=== PATIENT | male | born 1950 | race Caucasian/White ===

== ENCOUNTER 2021-03-28 09:02 | Outpatient (CLI) | payer MEDICARE ==
[2021-03-28 11:14] LABS: Hemoglobin 12.7 g/dL (13.5-17.5); Mean Corpuscular HGB CONC 32.5 g/dL (32.0-36.0); Mean Corpuscular Hemoglobin 31.1 pg (27.0-33.0); Mean Corpuscular Volume 95.8 fl (81.2-95.1); Mean Platelet Volume 9.4 fl (7.4-10.4); Platelet Count 267 10x3/uL (150-450); RBC Distribution Width 13.2 % (11.5-14.5); Red Blood Cell (RBC) Count 4.08 10x6/uL (4.32-5.72); White Blood Cell (WBC) Count 6.7 10x3/uL (3.5-10.5)
[2021-03-28 11:35] LABS: Anion Gap 13 mmol/L (10-20); BUN (Urea Nitrogen) 17 mg/dL (8.4-25.7); Calc. Creatinine Clearance 0 mL/min (70-130); Calcium 8.7 mg/dL (7.8-10.44); Carbon Dioxide 25 mmol/L (23-31); Chloride 103 mmol/L (98-107); Glucose 102 mg/dL (80-115); Potassium 4.5 mmol/L (3.5-5.1); Sodium 136 mmol/L (136-145)
[2021-03-28 19:23] LABS: SARS-CoV-2 PCR by NAA DETECTED (NotDetected)
== END 2021-03-28 09:03 | disposition home or self-care (01) ==
LOC: CSHLAB 09:02
PROVIDERS: ATTEND Surgery
DX: U07.1 COVID-19 (principal); K40.90 Unilateral inguinal hernia, without obstruction or gangrene, not specified as recurrent
CPT/HCPCS: 80048; 85027; 93005; 93010; U0003; U0005

== ENCOUNTER 2021-04-28 06:41 | Day surgery (SDC) | payer MEDICARE ==
[2021-03-23 13:49] VITALS: BMI 24.6
[~2021-04-28 06:41] MED LIST: EPINEPHrine 1 MG/ML AMP ONE
[2021-04-28] MEDS ORDERED: Bupivacaine PF 0.5% 30 ML VIAL ONE (06:42)
[2021-04-28] MEDS ORDERED: Lidocaine 1% MPF 2 ML VIAL ONE (07:00)
[2021-04-28] MEDS ORDERED: Rocuronium Bromide 10 MG/ML (10ML VIAL) ONE (07:56)
[2021-04-28] MEDS ORDERED: Dexamethasone 4 mg/ml Vial ONE (07:56)
[2021-04-28] MEDS ORDERED: Ondansetron PF 4 MG/2 ML Vial ONE (07:56)
[2021-04-28] MEDS ORDERED: PROPOFOL 20 ML ONE (07:56)
[2021-04-28] MEDS ORDERED: Fentanyl 100 MCG/2 ML VIAL ONE ×2 (07:56→09:24)
[2021-04-28] MEDS ORDERED: Lidocaine 2% PF 5 ML VIAL ONE (07:57)
[2021-04-28] MEDS ORDERED: ceFAZolin 2 GM/Dextrose 50 ML IVPB ONE (08:22)
[2021-04-28] MEDS ORDERED: traMADol HCl 50 MG TAB PO PRN (08:28)
[2021-04-28] MEDS ORDERED: PHENYLEPHRINE-NS 100 MCG/ML 10 ML SYRINGE ONE (08:45)
[2021-04-28] MEDS ORDERED: ePHEDrine Sulfate 50 MG/10 ML VIAL ONE (08:48)
[2021-04-28] MEDS ORDERED: Glycopyrrolate 0.2 MG/ML 5 ML SYRINGE ONE (08:48)
[2021-04-28] MEDS ORDERED: Esmolol 100 MG/10 ML VIAL ONE (09:24)
== END 2021-04-28 10:25 | disposition home or self-care (01) ==
LOC: CSHSDC 06:41
PROVIDERS: ATTEND Surgery
PROC: 0YU64JZ Supplement Left Inguinal Region with Synthetic Substitute, Percutaneous Endoscopic Approach (ICD-10-PCS; principal; 2021-04-28)
DX: K40.90 Unilateral inguinal hernia, without obstruction or gangrene, not specified as recurrent (principal); Z79.899 Other long term (current) drug therapy; Z79.82 Long term (current) use of aspirin; E78.5 Hyperlipidemia, unspecified; H40.9 Unspecified glaucoma; Z87.891 Personal history of nicotine dependence
CPT/HCPCS: C1781; J0171; J0690; J1100; J2001; J2405; J2704; J3010; S0020